=== PATIENT | female | born 1990 | race African-American/Black ===

== ENCOUNTER 2017-02-20 06:00 | Inpatient (IN) ==
[2017-02-20] MEDS ORDERED: FAMOTIDINE 20 MG/2 ML VIAL IV PRN (06:20)
[2017-02-20] MEDS ORDERED: CITRIC ACID/SODIUM CITRATE 30 ML UDCUP PO PRN (06:20)
[2017-02-20] MEDS ORDERED: LACTATED RINGERS 1,000 ML IV ONE (06:24)
[2017-02-20 06:46] LABS: Basophils % 0.4 % (0.0-0.8); Eosinophils % 0.4 % (0.00-10.9); Hematocrit 34.9 VOL% (35.7-47.0); Hemoglobin 11.5 GM/DL (12.0-16.0); Immature Granulocytes % 0.2 %; Immature Granulocytes Absolute 0.02 #; Lymphocytes # 2.7 10*3/uL (1.4-4.0); Lymphocytes % 32.8 % (21.3-54.2); Mean Corpuscular Hemoglobin 28 PG (27-34); Mean Corpuscular Volume 83.5 FL (87-102); Mean Platelet Volume 12.8 FL (9.6-12.0); Monocytes # 0.6 10*3/uL (0.11-0.8); Neutrophils # 4.9 10*3/uL (1.4-7.4); Neutrophils % 59.2 % (38.7-73.9); Platelet Count 181 T/CUMM (130-400); Red Blood Count 4.18 MC/CUMM (3.8-5.5); Red Cell Distribution Width 15.1 % (9.3-17.3); White Blood Count 8.2 T/CUMM (4-12)
[2017-02-20 06:56] LABS: INR 0.9; PT Patient Result 9.4 SECS; Partial Thromboplastin Time 28.2 SECS (0-40)
[2017-02-20] MEDS ORDERED: LACTATED RINGERS 1,000 ML IV SCH (07:00)
[2017-02-20] MEDS ORDERED: OXYTOCIN/LR 20 UNIT/1,000 ML BAG IV SCH (07:00)
[2017-02-20 07:25] LABS: Albumin 1.8 G/DL (3.4-5.0); Bilirubin,Total 0.4 MG/DL (0.2-1.0); Osmolality,Calculated 266.1 MOS/KG (273-304); Potassium 3.5 MMOL/L (3.5-5.1); Total Protein 6.2 G/DL (6.4-8.3)
[2017-02-20] MEDS ORDERED: LIDOCAINE 1% 5 ML VIAL ONE (07:57)
[2017-02-20] MEDS ORDERED: ONDANSETRON 4 MG/2 ML VIAL ONE ×2 (07:57→09:34)
[2017-02-20 09:16] LABS: Cord Venous Blood HCO3 22.1 MMOL/L; Cord Venous Blood PCO2 51.8 MMHG; Cord Venous Blood PO2 21.5
[2017-02-20] MEDS ORDERED: MORPHINE 10 MG/10 ML VIAL ONE (09:34)
[2017-02-20] MEDS ORDERED: PROMETHAZINE 25 MG/1 ML VIAL IM PRN (09:44)
[2017-02-20] MEDS ORDERED: PROMETHAZINE 25 MG/1 ML VIAL ONE (09:45)
[2017-02-20 10:14] LABS: Apearance,Urine CLEAR (Clear); Bacteria,Urine Occasional /HPF (Few); Bilirubin,Urine Negative (Negative); Blood, Urine Negative (Negative); Glucose,Urine (UA) Negative (Negative); Ketones,Urine Negative (Negative); Mucus,Urine Occasional /LPF (Occasional); Nitrite,Urine Negative (Negative); Protein,Urine >=500 MG/DL; RBC,Urine 2 /HPF (0-4); Squamous Epithelial Cell,Urine Occasional /HPF (0-10); Urine Color Yellow (Yellow); Urine Specific Gravity 1.008 (1.001-1.035); Urine Urobilinogen < 2.0 EU/DL (0.2-1.0); WBC,Urine 1 /HPF (0-6)
[2017-02-20] MEDS ORDERED: RHO(D) IMMUNE GLOBULIN 300 MCG SYRINGE IM ONE (11:57)
[2017-02-20] MEDS ORDERED: MAGNESIUM HYDROXIDE SUSP 30 ML UDCUP PO PRN (11:57)
[2017-02-20] MEDS ORDERED: ONDANSETRON 4 MG/2 ML VIAL IV PRN (11:57)
[2017-02-20] MEDS ORDERED: SIMETHICONE CHEW 80 MG TABLET PO PRN (11:57)
[2017-02-20] MEDS: ceFAZolin 1,000 MG in SYRINGE 1 EACH IV SCH (17:00)
[2017-02-20] MEDS: LACTATED RINGERS 1,000 ML IV SCH (22:00)
[2017-02-20] MEDS: DOCUSATE SODIUM 100 MG CAPSULE PO SCH (22:56)
[2017-02-21] MEDS: ceFAZolin 1,000 MG in SYRINGE 1 EACH IV SCH (01:35)
[2017-02-21] MEDS: LACTATED RINGERS 1,000 ML IV SCH (06:00)
[2017-02-21 06:21] LABS: Basophils % 0.1 % (0.0-0.8); Eosinophils % 0.3 % (0.00-10.9); Hematocrit 32.5 VOL% (35.7-47.0); Immature Granulocytes % 0.5 %; Immature Granulocytes Absolute 0.05 #; Lymphocytes # 1.7 10*3/uL (1.4-4.0); Lymphocytes % 15.5 % (21.3-54.2); Mean Corpuscular HGB Conc 33.8 GM/DL (32-36); Mean Corpuscular Hemoglobin 28 PG (27-34); Mean Corpuscular Volume 83.1 FL (87-102); Mean Platelet Volume 12.5 FL (9.6-12.0); Monocytes # 0.7 10*3/uL (0.11-0.8); Neutrophils # 8.6 10*3/uL (1.4-7.4); Neutrophils % 77.6 % (38.7-73.9); Platelet Count 167 T/CUMM (130-400); Red Blood Count 3.91 MC/CUMM (3.8-5.5); Red Cell Distribution Width 15.1 % (9.3-17.3); White Blood Count 11.1 T/CUMM (4-12)
[2017-02-21] MEDS: MULTIVITAMIN (PRENATAL) TABLET PO SCH (09:33)
[2017-02-21] MEDS: IBUPROFEN 800 MG TABLET PO SCH ×2 (09:33→20:30)
[2017-02-21] MEDS: DOCUSATE SODIUM 100 MG CAPSULE PO SCH ×2 (09:34→20:31)
[2017-02-22] MEDS: IBUPROFEN 800 MG TABLET PO SCH (04:59)
[2017-02-22 09:49] VITALS: BP 139/88
[2017-02-22] MEDS: MULTIVITAMIN (PRENATAL) TABLET PO SCH (10:21)
[2017-02-22] MEDS: DOCUSATE SODIUM 100 MG CAPSULE PO SCH (10:21)
== END 2017-02-22 11:50 | disposition home or self-care (01) | DRG 540 ==
LOC: N.LDOUT 06:00 → N.LD 06:06 → N.OB 11:28
PROVIDERS: ADMIT Obstetrics & Gynecology; ATTEND Obstetrics & Gynecology
PROC: LDCSECT (ICD-10-PCS; 2017-02-20 07:10)

== ENCOUNTER 2019-04-16 08:23 | Inpatient (IN) ==
[2019-04-16] MEDS ORDERED: CITRIC ACID/SODIUM CITRATE 30 ML UDCUP PO ONE (09:18)
[2019-04-16] MEDS ORDERED: ceFAZolin 3,000 MG in SYRINGE 1 EACH IV ONE (09:18)
[2019-04-16] MEDS ORDERED: FAMOTIDINE 20 MG/2 ML VIAL IV ONE (09:18)
[2019-04-16] MEDS ORDERED: LACTATED RINGERS 1,000 ML IV SCH (09:30)
[2019-04-16 09:36] LABS: Basophils % 0.3 % (0.0-0.8); Eosinophils % 0.5 % (0.00-10.9); Hematocrit 29.2 VOL% (35.7-47.0); Immature Granulocytes % 0.1 %; Immature Granulocytes Absolute 0.01 #; Lymphocytes # 2.2 10*3/uL (1.4-4.0); Lymphocytes % 29.6 % (21.3-54.2); Mean Corpuscular HGB Conc 30.8 GM/DL (32-36); Mean Corpuscular Volume 77.9 FL (87-102); Mean Platelet Volume 11.8 FL (9.6-12.0); Monocytes % 6.9 % (1.7-12.7); Neutrophils % 62.6 % (38.7-73.9); Platelet Count 191 T/CUMM (130-400); Red Blood Count 3.75 MC/CUMM (3.8-5.5); White Blood Count 7.4 T/CUMM (4-12)
[2019-04-16] MEDS ORDERED: OXYTOCIN 40 UNIT in LACTATED RINGERS 1,000 ML IV ONE (10:00)
[2019-04-16 10:52] LABS: HIV Antigen/Antibody Result Nonreactive (Nonreactive); Hepatitis B Surface Ag Quant < 0.10 Index; Hepatitis B Surface Ag Result Negative (Negative); Rubella Antibody IgG 7.3 IU/ML
[2019-04-16] MEDS ORDERED: MORPHINE 10 MG/10 ML VIAL ONE (11:04)
[2019-04-16] MEDS ORDERED: ROPIVACAINE 0.5% 30 ML VIAL ONE ×2 (11:04→11:47)
[2019-04-16] MEDS ORDERED: PHENYLEPHRINE 1 MG/10 ML SYRINGE IV ONE (11:04)
[2019-04-16] MEDS ORDERED: ONDANSETRON 4 MG/2 ML VIAL ONE (11:04)
[2019-04-16] MEDS ORDERED: BUPIVACAINE SPINAL 0.75% 2 ML AMP SPINAL ONE (11:04)
[2019-04-16] MEDS ORDERED: DEXAMETHASONE 4 MG/1 ML VIAL ONE (11:05)
[2019-04-16 12:35] LABS: Cord Venous Blood HCO3 21.9 MMOL/L; Cord Venous Blood PCO2 48.3 MMHG
[2019-04-16] MEDS ORDERED: OXYTOCIN/LR 20 UNIT/1,000 ML BAG IV ONE ×2 (12:36→14:25)
[2019-04-16 12:50] LABS: Apearance,Urine CLEAR (Clear); Bilirubin,Urine Negative (Negative); Blood, Urine Negative (Negative); Glucose,Urine (UA) Negative (Negative); Hyaline Casts,Urine 1 /LPF (0-3); Ketones,Urine Negative (Negative); Mucus,Urine Occasional /LPF (Occasional); Nitrite,Urine Negative (Negative); Protein,Urine 100 MG/DL; RBC,Urine 1 /HPF (0-4); Urine Color Yellow (Yellow); Urine Urobilinogen < 2.0 EU/DL (0.2-1.0); WBC,Urine 4 /HPF (0-6)
[2019-04-16] MEDS ORDERED: SODIUM CHLORIDE 0.9% 1,000 ML IV PRN (12:59)
[2019-04-16] MEDS ORDERED: KETAMINE 500 MG/10 ML VIAL ONE (13:38)
[2019-04-16] MEDS ORDERED: propofoL 200 MG/20 ML VIAL IV ONE (13:38)
[2019-04-16] MEDS ORDERED: MIDAZOLAM 2 MG/2 ML VIAL ONE (13:39)
[2019-04-16] MEDS: ONDANSETRON 4 MG/2 ML VIAL IV PRN ×2 (14:54→20:16)
[2019-04-16] MEDS ORDERED: ACETAMINOPHEN 325 MG TABLET PO PRN (17:41)
[2019-04-16] MEDS ORDERED: RHO(D) IMMUNE GLOBULIN 300 MCG SYRINGE IM ONE (17:41)
[2019-04-16] MEDS ORDERED: IBUPROFEN 800 MG TABLET PO PRN (17:41)
[2019-04-16 20:01] LABS: Basophils % 0.1 % (0.0-0.8); Hematocrit 37.3 VOL% (35.7-47.0); Hemoglobin 11.8 GM/DL (12.0-16.0); Immature Granulocytes % 0.3 %; Immature Granulocytes Absolute 0.05 #; Mean Corpuscular HGB Conc 31.6 GM/DL (32-36); Mean Platelet Volume 11.7 FL (9.6-12.0); Monocytes % 3.7 % (1.7-12.7); Neutrophils % 88.9 % (38.7-73.9); Platelet Count 182 T/CUMM (130-400); Red Blood Count 4.66 MC/CUMM (3.8-5.5); Red Cell Distribution Width 16.5 % (9.3-17.3); White Blood Count 14.5 T/CUMM (4-12)
[2019-04-16] MEDS: ceFAZolin 1,000 MG in SYRINGE 1 EACH IV SCH (20:12)
[2019-04-16] MEDS: DOCUSATE SODIUM 100 MG CAPSULE PO SCH (20:59)
[2019-04-17] MEDS: ceFAZolin 1,000 MG in SYRINGE 1 EACH IV SCH (04:03)
[2019-04-17 05:22] LABS: Basophils % 0.2 % (0.0-0.8); Hematocrit 32.1 VOL% (35.7-47.0); Immature Granulocytes % 0.3 %; Immature Granulocytes Absolute 0.05 #; Lymphocytes # 1.9 10*3/uL (1.4-4.0); Lymphocytes % 12.3 % (21.3-54.2); Mean Corpuscular HGB Conc 31.2 GM/DL (32-36); Mean Platelet Volume 12.3 FL (9.6-12.0); Monocytes % 9.3 % (1.7-12.7); Neutrophils % 77.9 % (38.7-73.9); Platelet Count 197 T/CUMM (130-400); Red Blood Count 4.01 MC/CUMM (3.8-5.5); Red Cell Distribution Width 16.4 % (9.3-17.3); White Blood Count 15.6 T/CUMM (4-12)
[2019-04-17] MEDS: MAGNESIUM HYDROXIDE SUSP 30 ML UDCUP PO PRN ×2 (09:20→19:59)
[2019-04-17] MEDS: DOCUSATE SODIUM 100 MG CAPSULE PO SCH ×2 (09:20→19:59)
[2019-04-17] MEDS: MULTIVITAMIN (PRENATAL) TABLET PO SCH (09:20)
[2019-04-17] MEDS: SIMETHICONE CHEW 80 MG TABLET PO PRN (19:59)
[2019-04-17] MEDS: BISACODYL 10 MG SUPP RECTAL PRN (22:20)
[2019-04-18] MEDS: DOCUSATE SODIUM 100 MG CAPSULE PO SCH ×2 (10:26→20:56)
[2019-04-18] MEDS: MULTIVITAMIN (PRENATAL) TABLET PO SCH (10:26)
[2019-04-18] MEDS: BISACODYL 10 MG SUPP RECTAL PRN (10:27)
[2019-04-18] MEDS: SIMETHICONE CHEW 80 MG TABLET PO PRN (10:27)
[2019-04-18] MEDS: MAGNESIUM HYDROXIDE SUSP 30 ML UDCUP PO PRN (10:27)
[2019-04-19] MEDS: SIMETHICONE CHEW 80 MG TABLET PO PRN (08:17)
[2019-04-19] MEDS: MULTIVITAMIN (PRENATAL) TABLET PO SCH (08:17)
[2019-04-19] MEDS: DOCUSATE SODIUM 100 MG CAPSULE PO SCH (08:17)
[2019-04-19 11:25] VITALS: BP 116/66
[2019-04-19] MEDS ORDERED: MEASLES/MUMPS/RUBELLA VACCINE 0.5 ML VIAL SUBCUT ONE (13:45)
== END 2019-04-19 17:03 | disposition home or self-care (01) | DRG 788 ==
LOC: N.LD 08:23 → N.OB 17:36
PROVIDERS: ADMIT Obstetrics & Gynecology; ATTEND Obstetrics & Gynecology
PROC: LDCSECT (ICD-10-PCS; 2019-04-16 10:15)

== ENCOUNTER 2020-07-23 05:28 | Inpatient (IN) ==
[2020-07-23] MEDS ORDERED: BUTORPHANOL 2 MG/ML VIAL IV PRN (05:32)
[2020-07-23] MEDS ORDERED: MEPERIDINE 50 MG/1 ML VIAL IV PRN (05:32)
[2020-07-23] MEDS ORDERED: LACTATED RINGERS 500 ML IV PRN (05:32)
[2020-07-23] MEDS ORDERED: ONDANSETRON 4 MG/2 ML VIAL IV PRN ×2 (05:32→09:08)
[2020-07-23] MEDS: LACTATED RINGERS 1,000 ML IV SCH ×2 (05:57→07:10)
[2020-07-23 06:07] LABS: Basophils % 0.3 % (0.0-0.8); Eosinophils # 0.2 10*3/uL (0.0-0.87); Eosinophils % 1.5 % (0.00-10.9); Hematocrit 32.3 VOL% (35.7-47.0); Hemoglobin 9.6 GM/DL (12.0-16.0); Immature Granulocytes % 0.5 %; Immature Granulocytes Absolute 0.05 #; Lymphocytes # 2.8 10*3/uL (1.4-4.0); Mean Corpuscular HGB Conc 29.7 GM/DL (32-36); Mean Corpuscular Volume 77.6 FL (87-102); Mean Platelet Volume 11.4 FL (9.6-12.0); Monocytes % 7.5 % (1.7-12.7); NRBC # 0.03 10*3/uL; Neutrophils % 63.2 % (38.7-73.9); Platelet Count 307 T/CUMM (130-400); Red Blood Count 4.16 MC/CUMM (3.8-5.5); Red Cell Distribution Width 16.5 % (9.3-17.3); White Blood Count 10.3 T/CUMM (4-12)
[2020-07-23] MEDS ORDERED: OXYTOCIN/LR 20 UNIT/1,000 ML BAG IV PRN (06:22)
[2020-07-23 06:30] LABS: Band Neutrophils 2 % (0-10); Eosinophils 3 % (0-10); Hypochromasia 1+; Lymphocytes 27 % (20-55); Microcytosis 1+; Segmented Neutrophils 64 % (50-85); Total Cells Counted 100
[2020-07-23 06:37] LABS: Albumin 2.4 G/DL (3.4-5.0); Calcium 9.1 MG/DL (8.5-10.1); Osmolality,Calculated 271.8 MOS/KG (273-304); Potassium 3.7 MMOL/L (3.5-5.1); Total Protein 7.2 G/DL (6.4-8.2)
[2020-07-23] MEDS ORDERED: CITRIC ACID/SODIUM CITRATE 30 ML UDCUP PO ONE (06:45)
[2020-07-23] MEDS ORDERED: FAMOTIDINE 20 MG/2 ML VIAL IV ONE (06:45)
[2020-07-23] MEDS ORDERED: ceFAZolin 2,000 MG in PREMIX 1 EACH IV ONE (06:45)
[2020-07-23] MEDS ORDERED: ONDANSETRON 4 MG/2 ML VIAL ONE (06:56)
[2020-07-23] MEDS ORDERED: BUPIVACAINE SPINAL 0.75% 2 ML AMP SPINAL ONE (06:56)
[2020-07-23] MEDS ORDERED: miSOPROStoL 200 MCG TABLET ONE (07:12)
[2020-07-23] MEDS ORDERED: CARBOPROST TROMETHAMINE 250 MCG/ML AMP IM ONE (07:12)
[2020-07-23] MEDS ORDERED: METHYLERGONOVINE 0.2 MG/1 ML AMP ONE (07:12)
[2020-07-23] MEDS ORDERED: LACTATED RINGERS 1,000 ML IV ONE (08:08)
[2020-07-23] MEDS ORDERED: PHENYLEPHRINE 1 MG/10 ML SYRINGE IV ONE (08:08)
[2020-07-23 08:42] LABS: Cord Arterial Blood HCO3 21.9 MMOL/L
[2020-07-23 08:45] LABS: Cord Venous Blood HCO3 29.9 MMOL/L; Cord Venous Blood PCO2 61.8 MMHG; Cord Venous Blood PO2 20.1 MMHG
[2020-07-23 08:47] LABS: Bilirubin,Urine Negative (Negative); Blood, Urine Moderate mg/dL (Negative); Glucose,Urine (UA) Negative (Negative); Ketones,Urine Negative (Negative); Mucus,Urine Occasional /LPF (Occasional); Nitrite,Urine Negative (Negative); Protein,Urine 100 MG/DL; RBC,Urine <1 /HPF (0-4); Squamous Epithelial Cell,Urine Occasional /HPF (0-10); Urine Appearance CLEAR (Clear); Urine Color Yellow (Yellow); Urine Specific Gravity 1.016 (1.001-1.035); Urine Urobilinogen < 2.0 EU/DL (0.2-1.0)
[2020-07-23] MEDS ORDERED: SIMETHICONE CHEW 80 MG TABLET PO PRN (09:08)
[2020-07-23] MEDS ORDERED: RHO(D) IMMUNE GLOBULIN 300 MCG SYRINGE IM ONE (09:08)
[2020-07-23] MEDS ORDERED: ACETAMINOPHEN 325 MG TABLET PO PRN (09:08)
[2020-07-23] MEDS ORDERED: MAGNESIUM HYDROXIDE SUSP 30 ML UDCUP PO PRN (09:08)
[2020-07-23] MEDS ORDERED: OXYTOCIN/LR 20 UNIT/1,000 ML BAG IV ONE (09:08)
[2020-07-23] MEDS ORDERED: LACTATED RINGERS 1,000 ML IV SCH (09:30)
[2020-07-23] MEDS: KETOROLAC 30 MG/1 ML VIAL IV SCH ×3 (09:53→22:36)
[2020-07-23 12:28] LABS: Basophils % 0.2 % (0.0-0.8); Eosinophils # 0.1 10*3/uL (0.0-0.87); Eosinophils % 0.4 % (0.00-10.9); Hematocrit 29.8 VOL% (35.7-47.0); Hemoglobin 8.8 GM/DL (12.0-16.0); Immature Granulocytes % 0.5 %; Immature Granulocytes Absolute 0.07 #; Lymphocytes % 13.6 % (21.3-54.2); Mean Corpuscular HGB Conc 29.5 GM/DL (32-36); Mean Corpuscular Volume 78.2 FL (87-102); Mean Platelet Volume 11.4 FL (9.6-12.0); Monocytes % 5.8 % (1.7-12.7); Neutrophils % 79.5 % (38.7-73.9); Platelet Count 266 T/CUMM (130-400); Red Blood Count 3.81 MC/CUMM (3.8-5.5); Red Cell Distribution Width 16.4 % (9.3-17.3); White Blood Count 14.7 T/CUMM (4-12)
[2020-07-23] MEDS: ACETAMINOPHEN 500 MG TABLET PO SCH (12:50)
[2020-07-24 05:26] LABS: Basophils % 0.2 % (0.0-0.8); Eosinophils # 0.1 10*3/uL (0.0-0.87); Eosinophils % 1.1 % (0.00-10.9); Hematocrit 25.4 VOL% (35.7-47.0); Hemoglobin 7.4 GM/DL (12.0-16.0); Immature Granulocytes % 0.4 %; Immature Granulocytes Absolute 0.05 #; Lymphocytes # 1.7 10*3/uL (1.4-4.0); Lymphocytes % 14.9 % (21.3-54.2); Mean Corpuscular HGB Conc 29.1 GM/DL (32-36); Mean Platelet Volume 10.6 FL (9.6-12.0); Monocytes % 8.9 % (1.7-12.7); NRBC # 0.02 10*3/uL; Neutrophils % 74.5 % (38.7-73.9); Platelet Count 207 T/CUMM (130-400); White Blood Count 11.3 T/CUMM (4-12)
[2020-07-24] MEDS: ACETAMINOPHEN 500 MG TABLET PO SCH (08:07)
[2020-07-24] MEDS: DOCUSATE SODIUM 100 MG CAPSULE PO SCH ×2 (08:56→19:34)
[2020-07-24] MEDS: FERROUS SULFATE 325 MG TABLET PO SCH ×2 (08:56→19:34)
[2020-07-24] MEDS ORDERED: MULTIVITAMIN (PRENATAL) TABLET PO SCH (09:00)
[2020-07-24] MEDS: IBUPROFEN 800 MG TABLET PO PRN ×2 (09:19→19:34)
[2020-07-25 07:52] VITALS: BP 130/60
[2020-07-25] MEDS: IBUPROFEN 800 MG TABLET PO PRN (08:20)
[2020-07-25] MEDS: DOCUSATE SODIUM 100 MG CAPSULE PO SCH (08:20)
[2020-07-25] MEDS: FERROUS SULFATE 325 MG TABLET PO SCH (08:20)
== END 2020-07-25 11:15 | disposition home or self-care (01) | DRG 540 ==
LOC: N.LD 05:28 → N.OB 13:30
PROVIDERS: ADMIT Obstetrics & Gynecology; ATTEND Obstetrics & Gynecology